=== PATIENT | male | born 1960 | race Caucasian/White ===

== ENCOUNTER 2018-03-30 14:38 | Inpatient (IN) ==
[2018-03-30 15:36] LABS: INR 1.12; PROTIME 15.3 Seconds (11.0-16.0)
[2018-03-30 15:37] LABS: PTT 35.4 Seconds (22.3-41.8)
[2018-03-30 15:39] LABS: BASO# 0.04 X1000 (0.0-0.2); BASO% 0.2 % (0.0-0.8); EOS# 0.26 X1000 (0.0-0.7); EOS% 1.1 % (0.0-10.0); HEMATOCRIT 37.7 % (42.0-52.0); HEMOGLOBIN 12.1 g/dL (14.0-18.0); IMM GRAN# 0.22 X1000 (0.0-0.04); LYMPH# 1.54 X1000 (1.2-3.4); LYMPH% 6.7 % (20.5-51.1); MCH 31.5 PG (27-31); MCHC 32.1 g/dL (33-37); MCV 98.2 FL (81-99); MONO# 1.47 X1000 (0.11-0.59); MONO% 6.3 % (1.7-9.3); MPV 9.5 FL (7.4-10.4); NEUT# 19.62 X1000 (1.4-6.5); NEUT% 84.7 % (42.2-75.2); PLT 780 X1000 (130-400); RBC 3.84 XMIL (4.7-6.1); RDW 12.9 % (11.5-14.5); WBC 23.15 X1000 (4.8-10.8)
[2018-03-30 15:43] LABS: AGAP 14; ALBUMIN 3.3 g/dL (3.5-5.0); ALKALINE PHOSPHATASE 136 U/L (32-122); BUN 11 mg/dL (8-22); CALCIUM 8.7 mg/dL (8.8-10.2); CHLORIDE 100 mmol/L (98-107); CK PROFILE 18 U/L (24-204); COSMO 282; CREATININE 0.6 mg/dL (0.7-1.2); ESTIMATED GFR > 60; GLUCOSE 194 mg/dL (70-104); GOT 49 U/L (10-34); GPT 65 U/L (10-44); POTASSIUM 4.6 mmol/L (3.5-5.1); SODIUM 139 mmol/L (136-145); TCO2 25 mmol/L (25-35); TOTAL BILIRUBIN 0.27 mg/dL (0.20-1.00); TOTAL PROTEIN 6.5 g/dL (6.3-8.3)
[2018-03-30] MEDS ORDERED: TORADOL IM ONE (20:07)
[2018-03-30] MEDS ORDERED: ZOSYN 3.375 GM in NS 50 ML IV ONE (21:05)
--- NOTE | 2018-03-30 21:16 | PROVIDER DOCUMENTATION ---
This chart was entered by Stephani Velásquez Scribe, acting as scribe for Yair Morejon MD. HPI-Respiratory General - General Chief Complaint: Cough Stated Complaint: DR BROWN REF PNEUM/FLUID ON LUNG Time Seen by Provider: 03/30/18 20:25 Source: patient - History of Present Illness-Resp Nature of Presenting Problem: Pt was dx w/ pneumonia about 2 weeks ago, he was put on Leviquin for 5 days and another antibiotic that he cannot remember. Today he was told that the pneumonia isn't getting better, but worse and that he should come to the ED. Quality of Pain: reports: other (Pain w/ deep breathing) Severity in ED: reports: moderate Onset/Duration: reports: other (2 weeks) Timing: reports: still present Exposure: reports: other (prev. dx of pneumonia) Cough Quality/Degree: reports: no cough Episode Frequency: no prior episodes Current Respiratory Medication Therapy: Initiated none Modifying Factors: improves with: nothing Associated Symptoms: reports: chest pain/soreness (W/ deep breathing) Similar Symptoms Previously?: Yes Recently seen or treated by another doctor?: Yes Review of Systems - Adult - REVIEW OF SYSTEMS - ADULT Constitutional: denies: chills, fever Eyes: reports: no symptoms reported Ears, Nose, Mouth & Throat: reports: no symptoms reported Cardiovascular: reports: no symptoms reported Respiratory: reports: no symptoms reported. denies: shortness of breath, wheezing Gastrointestinal: reports: no symptoms reported. denies: abdominal pain, diarrhea, nausea, vomiting Genitourinary: reports: no symptoms reported Musculoskeletal: reports: no symptoms reported Integumentary: reports: no symptoms reported Neurological: reports: no symptoms reported Psychiatric: reports: no symptoms reported Endocrine: reports: no symptoms reported Hematologic/Lymphatic: reports: no symptoms reported Allergic/Immunologic: reports: no symptoms reported All Other Systems: Reviewed and Negative Past History - Adult - PAST MEDICAL HISTORY-ADULT Review of Records: reports: Old Records Reviewed, Nursing Assessment Review, Medications Reviewed, Social history reviewed & non-contributory. - SOCIAL HISTORY Smoking: quit greater than 1 year Substance Use: none/never Alcohol Use Frequency: never Living Situation: family Physical Exam-General - PHYSICAL EXAM-ADULT Initial Vital Signs Reviewed: Yes - CONSTITUTIONAL General Appearance: appears well, alert, no apparent distress - EYES Eyes: PERRL/EOMI, pink conjunctivae - HEAD, EARS, NOSE, MOUTH & THROAT HENMT: normocephalic/atraumatic, moist mucous membranes, normal ENT inspection, TMs normal, pharynx normal - NECK Neck: non-tender, full range of motion, supple, normal inspection - RESPIRATORY Respiratory: chest non-tender, other (marked egophony in L lung, marked decreased breath sounds) - CARDIOVASCULAR Cardiovascular: regular rate, rhythm - LYMPHATIC Lymphatic: no adenopathy - MUSCULOSKELETAL Back Exam: normal inspection, no CVA tenderness, no vertebral tenderness Extremity: normal range of motion, non-tender, normal gait, normal inspection - SKIN Integumentary: normal color, warm/dry - NEUROLOGIC Neurologic: grossly normal - PSYCHIATRIC Psych/Mental Status: normal thought process, oriented x 3 Progress - PLAN OF CARE/RESULTS Progress/Plan/Lab Results: Vital Signs - 8 hr 03/30/18 14:45 03/30/18 20:17 Temperature 97.9 F 98.1 F Pulse Rate 108 H 95 H Respiratory Rate 20 16 Blood Pressure 123/56 125/63 O2 Sat by Pulse Oximetry 97 97 Laboratory Results - last 24 hr 03/30/18 03/30/18 03/30/18 15:06 15:06 15:06 WBC 23.15 H RBC 3.84 L Hgb 12.1 L Hct 37.7 L MCV 98.2 MCH 31.5 H MCHC 32.1 L RDW Std Deviation 12.9 Plt Count 780 H MPV 9.5 Immature Gran % (Auto) 1.0 H Neut % (Auto) 84.7 H Lymph % (Auto) 6.7 L [place] % (Auto) 6.3 Eos % (Auto) 1.1 Baso % (Auto) 0.2 Immature Gran # (Auto) 0.22 H Neut # (Auto) 19.62 H Lymph # (Auto) 1.54 [place] # (Auto) 1.47 H Eos # (Auto) 0.26 Baso # (Auto) 0.04 PT 15.3 INR 1.12 PTT (Actin FS) 35.4 Sodium 139 Potassium 4.6 Chloride 100 Carbon Dioxide 25 Anion Gap 14 BUN 11 Creatinine 0.6 L Estimated GFR/1.73 m2 > 60 BUN/Creatinine Ratio 18 Glucose 194 H Calculated Osmolality 282 Calcium 8.7 L Total Bilirubin 0.27 AST 49 H ALT 65 H Alkaline Phosphatase 136 H Creatine Kinase 18 L Troponin T Total Protein 6.5 Albumin 3.3 L Globulin 3.2 Albumin/Globulin Ratio 1.0 Plasma Lactate 03/30/18 03/30/18 15:06 15:06 WBC RBC Hgb Hct MCV MCH MCHC RDW Std Deviation Plt Count MPV Immature Gran % (Auto) Neut % (Auto) Lymph % (Auto) [place] % (Auto) Eos % (Auto) Baso % (Auto) Immature Gran # (Auto) Neut # (Auto) Lymph # (Auto) [place] # (Auto) Eos # (Auto) Baso # (Auto) PT INR PTT (Actin FS) Sodium Potassium Chloride Carbon Dioxide Anion Gap BUN Creatinine Estimated GFR/1.73 m2 BUN/Creatinine Ratio Glucose Calculated Osmolality Calcium Total Bilirubin AST ALT Alkaline Phosphatase Creatine Kinase Troponin T < 0.010 Total Protein Albumin Globulin Albumin/Globulin Ratio Plasma Lactate 2.2 Orders Category Date Time Status Cardiac Monitoring DIRECTED Care 03/30/18 14:58 Active IV Insertion ORDERED Care 03/30/18 14:58 Active BLOOD CULTURE [BLDCUL] Stat Lab 03/30/18 15:06 Ordered CBC WITH DIFF [HEME] Stat Lab 03/30/18 15:06 Completed CK PROFILE [SP CHEM] Stat Lab 03/30/18 15:06 Completed COMPREHENSIVE METABOLIC PANEL [CHEM] Stat Lab 03/30/18 15:06 Completed LACTATE, PLASMA [CHEM] Lab 03/30/18 18:00 Uncollected LACTATE, PLASMA [CHEM] Lab 03/30/18 21:00 Uncollected LACTATE, PLASMA [CHEM] Q3H Lab 03/30/18 15:06 Completed PROTIME WITH INR [COAG] Stat Lab 03/30/18 15:06 Completed PTT [COAG] Stat Lab 03/30/18 15:06 Completed TROPONIN T Stat Lab 03/30/18 15:06 Completed URINALYSIS W/POSS RFLX CULT [URINALYSIS] Stat Lab 03/30/18 15:06 Ordered Ketorolac [Toradol] Med 03/30/18 20:07 Discontinued 60 mg IM NOW ONE Piperacillin/Tazobactam [Zosyn] 3.375 gm Med 03/30/18 21:05 Active 0.9% Sodium Chloride Inj [Ns] 50 ml IV NOW Oxygen Device Stat Oth 03/30/18 14:58 Active Result Diagrams: 03/30/18 15:06 03/30/18 15:06 - CONSULTS/PCP/HOSPITALIST Notification #1 *Consult/PCP/Hospitalist*: dr Nguyen Time Discussed: 20:30 Consult Disposition: Admit Departure - Departure Date of Disposition Decision: 03/30/18 Time of Disposition Decision: 21:15 DIAGNOSIS: Pleural effusion associated with pulmonary infection Pneumonia Qualifiers: Pneumonia type: due to unspecified organism Laterality: right Lung location: lower lobe of lung Qualified Code(s): J18.1 - Lobar pneumonia, unspecified organism Disposition: ADMITTED INPATIENT 09 Certified Medical Emergency: Emergent Condition: Stable Referrals and Follow-Ups: Chandrika Brown MD [Primary Care Provider] - - Critical Care Note This patient required my direct & personal management of CC.: No Attestation - Physician/ MARILEE Attestation Patient care was provided by Advanced Practice Provider:: No The physician spent face to face time with patient:: Yes Advanced Practice Provider documentation review:: Supervising physician onsite and consulted in the evaluation and care of this patient. The physician did have a face to face encounter with the patient. This chart was documented by the indicated scribe, (Stephani Velásquez, [employer]) and accurately reflects the services I performed and decisions made by me, Yair Morejon MD, as attested by the provider's signature.
[2018-03-30] MEDS ORDERED: MORPHINE IV ONE (21:43)
[2018-03-30] MEDS ORDERED: TYLENOL PO PRN (22:27)
[2018-03-30] MEDS: DUONEB (A & A) INH SCH (23:30)
[2018-03-31] MEDS: NORCO-10 PO PRN ×4 (00:19→18:00)
[2018-03-31 01:05] LABS: URINE SOURCE CLEAN CATCH
[2018-03-31 01:08] LABS: BILIRUBIN URINE NEGATIVE (NEGATIVE); BLOOD URINE NEGATIVE (NEGATIVE); COLOR YELLOW; GLUCOSE URINE NEGATIVE (NEGATIVE); KETONE URINE NEGATIVE (NEGATIVE); LEUKOCYTES URINE NEGATIVE (NEGATIVE); NITRITE URINE NEGATIVE (NEGATIVE); PROTEIN URINE TRACE mg/dL (NEGATIVE); TURBIDITY URINE CLEAR (CLEAR); UROBILINOGEN URINE 2 mg/dL (NORMAL)
[2018-03-31 01:09] LABS: UR EPITHELIAL CELLS <10 /HPF (<10); URINE BACTERIA NEGATIVE /HPF; URINE RBC <10 /HPF (<10); URINE WBC <10 /HPF (<10)
[2018-03-31] MEDS ORDERED: TYLENOL PM PO ONE (01:44)
[2018-03-31] MEDS: DUONEB (A & A) INH SCH ×5 (03:30→19:25)
[2018-03-31] MEDS: ZOSYN 3.375 GM in NS 50 ML IV SCH ×3 (03:40→14:48)
--- NOTE | 2018-03-31 03:52 | HISTORY AND PHYSICAL ---
PRIMARY CARE PHYSICIAN: Dr. Brown. CHIEF COMPLAINT: Shortness of breath for the past 2 weeks. HISTORY OF PRESENTING ILLNESS: A 57-year-old male with a history of Tourette's, chronic low back pain, who had presented to emergency room with 2 weeks history of having worsening shortness of breath and cough. He states that he had taken some antibiotics outpatient, however, he did not have any improvement. The patient was seen in the emergency department. He had a chest x-ray done which did show pneumonia with a right large pleural effusion. Due to his presenting symptoms, he will require admission for further management. At the time of my examination, he denied any headache, nausea, vomiting, diarrhea, hemoptysis, but complained of shortness of breath, chest pain and cough. PAST MEDICAL HISTORY: Tourette's, chronic back pain, arthritis. PAST SURGICAL HISTORY: Appendectomy. ALLERGIES: No known drug allergies. CURRENT MEDICATIONS: Include [place] 10 one q.i.d., Zoloft 100 mg p.o. daily. SOCIAL HISTORY: He is a former smoker. History of alcohol use in the past. Denies any illicit drug use. FAMILY HISTORY: No history of coronary artery disease. REVIEW OF SYSTEMS: Fourteen point review of system as listed in HPI. Other systems negative. PHYSICAL EXAMINATION: GENERAL: Cooperative, friendly male. He is resting more comfortably now. VITAL SIGNS: Temperature 97.9 degrees, pulse 108, respirations 20, blood pressure 123/56. HEENT: Atraumatic, normocephalic. Extraocular movements intact. PERRLA. NECK: No masses. CHEST: Bibasilar rales. CARDIOVASCULAR: Regular rate and rhythm. ABDOMEN: Soft, positive bowel sounds. EXTREMITIES: No edema. NEUROLOGIC: He is awake, alert, oriented x3. GENITOURINARY: No bladder distention. SKIN: Warm. LABORATORIES AND STUDIES: WBC 23.15, hemoglobin 12.1, hematocrit 37.7, platelets 780,000. Sodium 139, potassium 4.6, chloride 100, CO2 25, BUN is 11, creatinine 0.6, glucose is 194. Chest x-ray shows worsening right pleural effusion, bibasilar atelectasis versus pneumonia. ASSESSMENT: This is a 57-year-old male with a history of Tourette's, chronic back pain who had presented to emergency department with a 2-week history of worsening shortness of breath. He was evaluated in the emergency department. He had imaging done which was consistent with pneumonia. Subsequently, he will require admission for further management. 1. Pneumonia with right pleural effusion. 2. Tourette's. 3. Chronic low back pain. PLAN: 1. We will admit patient to medical floor with telemetry. 2. We will check blood cultures. Start patient on IV antibiotics. 3. We will consult Pulmonary for further evaluation closely. 4. Restart patient's home medications. 5. We will give patient adequate pain control. 6. Put patient on DVT prophylaxis with SCD. 7. We will continue to follow, and reassess and make further recommendation based on patient's clinical course. cc: Jan Nguyen MD
[2018-03-31 06:19] LABS: BASO# 0.04 X1000 (0.0-0.2); BASO% 0.2 % (0.0-0.8); EOS# 0.33 X1000 (0.0-0.7); EOS% 1.9 % (0.0-10.0); HEMATOCRIT 35.2 % (42.0-52.0); IMM GRAN# 0.22 X1000 (0.0-0.04); IMM GRAN% 1.3 % (0.0-0.5); LYMPH# 1.35 X1000 (1.2-3.4); LYMPH% 7.8 % (20.5-51.1); MCH 30.6 PG (27-31); MCHC 31.3 g/dL (33-37); MCV 98.1 FL (81-99); MONO# 1.59 X1000 (0.11-0.59); MONO% 9.2 % (1.7-9.3); MPV 9.5 FL (7.4-10.4); NEUT# 13.81 X1000 (1.4-6.5); NEUT% 79.6 % (42.2-75.2); PLT 732 X1000 (130-400); RBC 3.59 XMIL (4.7-6.1); RDW 13.1 % (11.5-14.5); WBC 17.34 X1000 (4.8-10.8)
[2018-03-31 06:43] LABS: AGAP 11; BUN 9 mg/dL (8-22); CALCIUM 8.7 mg/dL (8.8-10.2); CHLORIDE 102 mmol/L (98-107); COSMO 281; CREATININE 0.6 mg/dL (0.7-1.2); ESTIMATED GFR > 60; GLUCOSE 122 mg/dL (70-104); POTASSIUM 3.8 mmol/L (3.5-5.1); SODIUM 141 mmol/L (136-145); TCO2 28 mmol/L (25-35)
--- NOTE | 2018-03-31 07:14 | EKG Report ---
Test Performed on : 03/30/2018 2:55:56 PM Test Reason : CHEST PAIN Blood Pressure : / mmHG Vent. Rate : 098 BPM Atrial Rate : 098 BPM P-R Int : 148 ms QRS Dur : 094 ms QT Int : 340 ms P-R-T Axes : 042 -17 047 degrees QTc Int : 434 ms Normal sinus rhythm. Normal ECG No previous ECGs available Unconfirmed Result
--- NOTE | 2018-03-31 09:32 | Diag Imaging Result Doc PS360 ---
EXAM: CT THORAX W/O CONTRAST INDICATION: SOB TECHNIQUE: This exam was performed using automated exposure control, adjustment of mA or kV according to patient size, and/or use of iterative reconstruction technique. COMPARISON: None. FINDINGS: There is a large right pleural effusion that appears to be partially loculated. There is associated prominent atelectasis at the mid and lower lung zone on the right. There is slightly lower attenuation in part of the collapsed portion of right middle lobe and right lower lobe suggesting superimposed infection. There are patchy airspace infiltrates throughout the aerated portion of the right lung suggesting pneumonia. There are a couple of small infiltrates in the left upper lobe near the apex. There is minimal subsegmental atelectasis at the left lung base. There is no cardiomegaly. There are shotty small mediastinal and hilar lymph nodes that are probably reactive. Limited views of the upper abdomen are grossly unremarkable. IMPRESSION: 1.Large partially loculated right pleural effusion with associated significant atelectasis. 2.Patchy airspace consolidation that is mainly throughout the right lung but also near the left lung apex suggesting pneumonia. Electronically signed by Prieto Lutz 03/31/2018 9:29 AM
[2018-03-31] MEDS: ZOLOFT PO SCH (10:25)
--- NOTE | 2018-03-31 11:34 | Diag Imaging Result Doc PS360 ---
EXAM: CHEST-2 VIEWS HISTORY: POST RIGHT THORACENTESIS TECHNIQUE: Inspiratory and expiratory chest, four views COMPARISON: 03/30/2018 FINDINGS: Ultrasound of the right hemithorax demonstrated only eight tiny fluid collection inferiorly. What appears to be simple fluid on the CT is in fact very thick by ultrasound. A needle was advanced into this small collection without difficulty. No fluid could be withdrawn. No postprocedural pneumothorax. IMPRESSION: No change in appearance of the chest. No postprocedural pneumothorax. Electronically signed by Michael Bernard 03/31/2018 11:32 AM
--- NOTE | 2018-03-31 11:55 | Diag Imaging Result Doc PS360 ---
EXAM: US THORACENTESIS W/IMAGE GUIDE HISTORY: Therapeutic and diagnostic TECHNIQUE: Ultrasound-guided thoracentesis COMPARISON: None. FINDINGS: Prior to the procedure I discussed the risk and benefits with the patient. Primary risks include bleeding, infection, and pneumothorax. Questions were answered. Consent was given. The permit was signed. Ultrasound was used to localize the fluid collection in the right chest. What appears to be simple fluid on the CT is in fact shown to be thick and multiseptated by ultrasound. There are only tiny fluid collections present. This area was cleaned and draped in the normal fashion. Lidocaine was used as a local anesthetic. Needle was advanced and multiple were made to aspirate fluid. No fluid could be aspirated. IMPRESSION: Ultrasound-guided thoracentesis. No fluid could be withdrawn. Electronically signed by Michael Bernard 03/31/2018 11:53 AM
[2018-03-31] MEDS ORDERED: VANCOMYCIN IV PER PHARMACY MISC SCH (13:45)
--- NOTE | 2018-03-31 14:22 | PROGRESS NOTE ---
DATE: 03/31/2018 SUBJECTIVE: The patient reports not being able to sleep properly yesterday. He reports still some right-sided chest pain. Denies any fever or chills. OBJECTIVE: Vital Signs: Temperature 98.7 degrees, heart rate 92, respiratory rate 18, blood pressure 118/60, and O2 saturation 91% on room air. General: On examination, this is a 57-year- old male, lying in bed, in no acute distress. HEENT: Head is normocephalic, atraumatic. Neck: No JVD noted. No carotid bruits. No lymphadenopathy. No thyromegaly. Cardiovascular: S1 and S2 heard. No murmurs, gallops, or rubs. Regular rate and rhythm. Respiratory: Coarse breath sounds and rhonchi are noted in both pulmonary bases , mostly noted in the right base, with some crackles as well. Patient is not using any accessory muscles or having work of breathing. Abdomen: Soft, nontender to palpation. Bowel sounds present. No organomegaly. Extremities: No clubbing, cyanosis, or edema. Peripheral pulses present in both legs. Neurological: Patient is alert and oriented x3. Moves 4 extremities. LABORATORY DATA: White cell count 17.34, hemoglobin 11, hematocrit 35.2, platelets are 732, with normal BMP. ASSESSMENT AND PLAN: 1. Community-acquired pneumonia with possible right empyema. The patient was admitted to the hospital for pneumonia. CT of the chest basically revealed large partially loculated right pleural effusion with associated significant atelectasis. Pulmonary, Dr. Chong has been consulted. His help is appreciated. He ordered a thoracentesis that we tried to do this morning. The report said that on the ultrasound what appears to be simple fluid on the CT is in fact shown to be a thick and multiseptated collection. In that regard I prefer to have a surgical consultation to see if he is a candidate for chest tube placement. Currently, this patient is on Zosyn. I will add vancomycin to his current treatment. Considering that this patient will need antibiotics for a long period of time, I prefer to get Dr. Juan Carlos Murdock on board. 2. Tourette syndrome. We will continue home medications. 3. Chronic low back pain. We will provide home medications. 4. Disposition depending upon the opinions of both subspecialties, Infectious Disease and General Surgery. cc: Suhas Grimaldo MD [facility]
[2018-03-31] MEDS: VANCOMYCIN 2,000 MG in NS 500 ML IV SCH (16:00)
[2018-03-31] MEDS: FLEXERIL PO SCH ×2 (16:10→21:15)
--- NOTE | 2018-03-31 18:42 | INFECTIOUS DISEASE CONSULT REP ---
DATE: 03/31/2018 CONCLUSION: The patient is admitted to the hospital. He has pneumonia and he has some thick fluid in the pleural space and it is strongly suspected that the patient has an empyema as well. The patient also states that his shoulders are very sore since he has been lying in bed. He states that whenever he lies in bed for a period of time, his joints gets very sore in with his shoulders the worst. The patient may have an immunoglobulin deficiency. RECOMMENDATIONS: I agree to treating the patient with vancomycin and Zosyn. It is my understanding that tomorrow a tube is going to be put in the patient's chest to drain what is thought to be an empyema. I have ordered Flexeril for the patient. He requested Flexeril and said that in the past when he has had sore joints, Flexeril has helped him quite a bit. In addition, I am going to get immunoglobulin levels because the patient may have an immunoglobulin deficiency. DISCUSSION: The patient approximately 2 weeks ago started having dyspnea, diaphoresis, chills and cough. He occasionally produced a clear sputum. In the past 2 days, as mentioned above, he has had sore shoulders. LABORATORY STUDIES: Showed the following: The [place]'s [place] [id number]. [place] [address], hemoglobin is 11, platelet count is 732,000. Creatinine is 0.6. GFR is greater than 60. The patient's blood cultures are pending. The patient's CT scan of the chest shows a large partially loculated right pleural effusion with associated significant atelectasis. There is also a patchy airspace consolidation throughout the right lung suggesting pneumonia. PAST MEDICAL HISTORY/REVIEW OF SYSTEMS: Eyes and ears: She does not have any problem hearing or seeing. Neck: No stiffness. Cardiac: No chest pains or palpitations. Gastrointestinal: No nausea, vomiting, or diarrhea. Genitourinary: No dysuria or flank pain. Neurologic: No history of seizures. No recent loss of motor or sensory function. Integument: No rash. Endocrine: The patient is not diabetic and he does not have thyroid problems. PREVIOUS HOSPITALIZATIONS AND OPERATIONS: Patient has had an appendectomy. MEDICAL DISEASES: Negative for diabetes mellitus and hypertension. INFECTIOUS DISEASE HISTORY: Negative for urinary tract infection or cellulitis. FAMILY HISTORY: Positive for hypertension, stroke, and diabetes mellitus. SOCIAL HISTORY[place] . He lives alone. He does not have any pets. 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 He stopped smoking cigarettes years ago. He does drink beer. He does not abuse drugs. HOME MEDICATIONS: Include hydrocodone, Levaquin, meloxicam, and Zoloft. PHYSICAL EXAMINATION: Vital Signs: Temperature is 99.3 degrees, pulse 83, respirations 18, blood pressure 100/52. General: This is a fairly healthy-appearing, middle-aged male. He is in no acute distress except with his shoulders hurting. Head/eyes/ears/nose/throat: He can hear my spoken words and see near objects. Neck: No meningismus. Lungs: There were diminished breath sounds on the right side. The left side was clear. Cardiovascular: Heart rate is regular. Abdomen: Soft and nontender. Extremities: The patient does not have any leg erythema. Neurologic: Patient is awake. He can move his extremities. There is no tremor. His memory as regarding his medical history seemed to be intact. Thank you for the consult. cc: Juan Carlos Murdock MD
--- NOTE | 2018-03-31 19:59 | GENERAL SURGERY CONSULTATION ---
DATE: 03/31/2018 HISTORY OF PRESENT ILLNESS: Mr. Heath is a 57-year-old, admitted yesterday with shortness of breath and cough. He took antibiotics as an outpatient, but did not improve. He has a pleural effusion on the right side on chest x-ray. An attempted tapping of fluid was unsuccessful. PAST MEDICAL HISTORY: He has a past history of chronic back pain and Tourette's syndrome. PAST SURGICAL HISTORY: Previous surgery includes an appendectomy. MEDICATIONS: He takes [place] 10 for pain and Zoloft. ALLERGIES: He has no known drug allergies. SOCIAL HISTORY: He has not smoked in 6 years. He currently works at [employer]. Denies any alcohol or illicit drug use. FAMILY HISTORY: Pertinent for coronary disease. REVIEW OF SYSTEMS: As noted above. PHYSICAL EXAMINATION: Vital Signs: Temperature is 99.3, heart rate 83, respiratory 18, blood pressure 100/52. He has diminished breath sounds in the right base. Heart: Regular rate and rhythm. Abdomen: Soft. Extremities: No peripheral edema. Neurologic: He is awake and alert. DIAGNOSTICS: White count is 17,300, hemoglobin 11, hematocrit 35. Sodium 141, potassium 3.8. ASSESSMENT: Probable loculated right pleural effusion. PLAN: Will be to place a chest tube if possible. I discussed this with him. We will do it in the operating room with sedation. He understands and agrees to proceed. cc: Yair Fitzgerald MD
[2018-03-31] MEDS: AMBIEN PO SCH (21:16)
[2018-04-01] MEDS: ZOSYN 3.375 GM in NS 50 ML IV SCH ×4 (00:33→23:19)
[2018-04-01] MEDS: NORCO-10 PO PRN ×4 (01:19→23:10)
[2018-04-01] MEDS: VANCOMYCIN 2,000 MG in NS 500 ML IV SCH ×2 (02:30→16:00)
--- NOTE | 2018-04-01 04:37 | CONSULTATION ---
DATE OF CONSULTATION: 03/31/2018 REQUESTING PROVIDER: Dr. Jan Nguyen REASON FOR CONSULTATION: Pneumonia and pleural effusions. HISTORY OF PRESENT ILLNESS: This is a 57-year-old male with a history of Tourette's, chronic lower back pain and arthritis. He presented to the ER on 03/30/2018, with worsening shortness of breath and cough for two weeks. He has been seeing his family doctor and they treated him with 2 different kinds of antibiotics for 5 days each. However, he is not improved. CXR in the ER showed pneumonia with a right large pleural effusion. He has been admitted to the medical floor for further evaluation and management. At the time of my examination, the patient is complaining of shortness of breath, pleuritic chest pain and cough. He denied fever or chill, unintentional weight change, nausea, vomiting or palpitation. PAST MEDICAL HISTORY: 1. Tourette's. 2. Chronic back pain. 3. Arthritis. PAST SURGICAL HISTORY: Appendectomy. SOCIAL HISTORY: He is a former smoker. He denies history of alcohol, tobacco or illicit drug use. FAMILY HISTORY: Reviewed and noncontributory. ALLERGIES: No known drug allergies. REVIEW OF SYSTEMS: A 10-point review of systems was conducted and the pertinent is listed within the HPI. Otherwise, noncontributory. PHYSICAL EXAMINATION: Vital Signs: Temperature 98.7, blood pressure 118/60, pulse 92, respiratory rate 82, oxygen saturation 92% on room air. General: Cooperative, friendly male. He is resting comfortably on bed with no acute distress. He has sudden facial twitches at times. HEENT: Atraumatic. Trachea midline. Mucosa pink and moist. Respiratory: Lung expansion equal bilaterally, diminished breathing sounds bibasilarly. Otherwise, clear to auscultation. Cardiovascular: Regular rate and rhythm, without murmur noted. Gastrointestinal: Normoactive bowel sounds in all 4 quadrants. Soft, nontender, nondistended. Extremities: No pedal edema. No clubbing. No cyanosis. Neurologic: Alert, oriented x 3. Speech fluent. Follows commands. IMAGING DATA: Chest CT showed large, partially loculated right pleural effusion with associated significant atelectasis. Patchy airspace consolidation that is mainly throughout the right lung, but also near the left lung apex suggesting pneumonia. LAB DATA: White blood cells 17.34, hemoglobin 11.0, hematocrit 35.2, platelets 732,000. Sodium 141, potassium 3.8, chloride 102, carbon dioxide 28, BUN 9, creatinine 0.6, glucose 122. ASSESSMENT: This is a 57-year-old male with a history of Tourette's, chronic back pain and arthritis. He has been admitted in the medical floor with pneumonia and large partially loculated right pleural effusion. 1. Right lung pneumonia. 2. Large, partially loculated right pleural effusion. PLAN: 1. Continue current antibiotic therapy and bronchodilators. 2. Thoracentesis planned. If not operative, we will consider chest tube placement. 3. Follow with chest x-ray, ABG, CBC and CMP. 4. Follow up of with blood culture and sputum culture. 5. Continue GI and DVT prophylaxis. Thank you for the courtesy of this consult. Dictated by MENDEZ Richmond for Lulú Chong MD cc: MENDEZ Richmond MD [facility]
[2018-04-01] MEDS: DUONEB (A & A) INH SCH ×6 (05:40→23:10)
[2018-04-01] MEDS: FLEXERIL PO SCH ×4 (06:25→21:43)
[2018-04-01 06:37] LABS: BASO# 0.04 X1000 (0.0-0.2); BASO% 0.2 % (0.0-0.8); EOS# 0.21 X1000 (0.0-0.7); EOS% 1.1 % (0.0-10.0); HEMATOCRIT 37.9 % (42.0-52.0); HEMOGLOBIN 11.8 g/dL (14.0-18.0); IMM GRAN# 0.21 X1000 (0.0-0.04); IMM GRAN% 1.1 % (0.0-0.5); LYMPH# 1.49 X1000 (1.2-3.4); MCH 30.7 PG (27-31); MCHC 31.1 g/dL (33-37); MCV 98.7 FL (81-99); MONO# 2.02 X1000 (0.11-0.59); MONO% 10.9 % (1.7-9.3); MPV 9.5 FL (7.4-10.4); NEUT# 14.63 X1000 (1.4-6.5); NEUT% 78.7 % (42.2-75.2); PLT 881 X1000 (130-400); RBC 3.84 XMIL (4.7-6.1); RDW 13.3 % (11.5-14.5)
[2018-04-01 06:47] LABS: AGAP 12; BUN 7 mg/dL (8-22); CALCIUM 8.7 mg/dL (8.8-10.2); CHLORIDE 102 mmol/L (98-107); COSMO 279; CREATININE 0.6 mg/dL (0.7-1.2); ESTIMATED GFR > 60; GLUCOSE 120 mg/dL (70-104); POTASSIUM 4.1 mmol/L (3.5-5.1); SODIUM 140 mmol/L (136-145); TCO2 26 mmol/L (25-35)
[2018-04-01 07:21] LABS: EOS 2 % (1-10); LYMPHS 12 % (21-51); MONO 2 % (1-9); SEGS 84 % (42-75)
[2018-04-01] MEDS ORDERED: DIPRIVAN 1% ONE (07:37)
[2018-04-01] MEDS ORDERED: FENTANYL ONE (07:45)
[2018-04-01] MEDS ORDERED: KETAMINE ONE (07:46)
[2018-04-01] MEDS ORDERED: SENSORCAINE-MPF 0.5%/EPI 1:200,000 ONE (07:48)
[2018-04-01] MEDS ORDERED: QUELICIN (DOSE) ONE (07:50)
[2018-04-01] MEDS ORDERED: DEMEROL ONE ×2 (08:49→09:03)
[2018-04-01] MEDS ORDERED: NORCO-10 ONE (08:49)
[2018-04-01] MEDS ORDERED: NS 500 ML ONE (08:50)
--- NOTE | 2018-04-01 09:19 | Diag Imaging Result Doc PS360 ---
EXAM: CHEST-PORTABLE HISTORY: insertion of chest tube Right side TECHNIQUE: Portable chest single view COMPARISON: 03/31/2018 FINDINGS: A right-sided chest tube has been placed since the prior exam. There continues to be partial opacification of the mid and lower right hemithorax. No pneumothorax. Bilateral infiltrates or pulmonary edema remain. IMPRESSION: Placement of a right-sided chest tube, but otherwise no interval change. Electronically signed by Michael Bernard 04/01/2018 9:17 AM
[2018-04-01] MEDS: DILAUDID IV PRN ×5 (10:03→21:51)
[2018-04-01] MEDS: ZOLOFT PO SCH (10:09)
--- NOTE | 2018-04-01 12:32 | OPERATIVE NOTE ---
PROCEDURE DATE: 04/01/2018 PROCEDURE: Placement of right chest tube. SURGEON: Yair Fitzgerald MD TIPPLE REPAIRER: Heena. PREOPERATIVE DIAGNOSIS: Right loculated pleural effusion. POSTOPERATIVE DIAGNOSIS: Right loculated pleural effusion. DESCRIPTION OF PROCEDURE: Satisfactory monitoring anesthesia care was established, IV sedation was accomplished. The right anterolateral chest was prepped and draped in a sterile fashion. We anesthetized the skin in an oblique manner using 0.5 Marcaine with epinephrine. We also anesthetized the tissue in the subcutaneous all the way to the pleura. We incised the skin, and used a Barr curved scissors to dissect through the subcutaneous tissue. We then went just to the top of the rib and into the pleural space. We did get fluid back upon entering the pleural space. I then digitally entered the pleural space. There was grumous material palpated. We were able to introduce a 32 chest tube with a trocar into the pleural space, and advanced it to the extent that it would go. He tolerated the procedure satisfactorily. It did not cause him significant amount of discomfort. We then secured the chest tube with 0 silk. We attached the chest tube to a Pleur- evac. A sterile dressing was applied. He tolerated it well, and was sent to the recovery room in satisfactory condition. cc: Yair Fitzgerald MD
--- NOTE | 2018-04-01 14:29 | PROGRESS NOTE ---
DATE: 04/01/2018 SUBJECTIVE: Patient reports feeling fine, no important pain around the insertion of the chest tube, denies any fever, chills. OBJECTIVE: Vitals: Temperature 97.3 degrees, heart rate 91, respiratory rate 20, blood pressure 132/79, O2 saturation 95% room air. General: This is a 57-year-old male lying in bed in no acute distress. HEENT: Head is normocephalic, atraumatic. Neck: No JVD noted. No carotid bruits. No lymphadenopathy. No thyromegaly. Cardiovascular: S1, S2 heard. No murmurs, gallops, or rubs, regular rate and rhythm. Respiratory: Breath sounds and rhonchi noted in both pulmonary bases mostly noted in the right base. There is a right chest tube noted. The patient is not using any accessory muscles or having work of breathing. Abdomen: Soft, nontender to palpation. Bowel sounds present. No organomegaly. Extremities: No clubbing, cyanosis or edema. Peripheral pulses present in both legs. Neurologic: Patient is alert, oriented x3, moves 4 extremities. LABORATORY DATA: White cell count 18.6, hemoglobin 11.8, hematocrit 37.9, platelets 881,000 with normal BMP. ASSESSMENT AND PLAN: 1. Community-acquired pneumonia. 2. Right empyema status post chest tube placement. 3. Tourette syndrome. 4. Chronic low back pain. PLAN: 1. Patient was admitted to the hospital for pneumonia. We have seen in the CT large right pleural effusion and we fail to remove those fluids with thoracentesis so we decided to consult Dr. Fitzgerald from General Surgery and he placed a right chest tube in the right loculated pleural effusion, patient has tolerated procedure very well. At this time we are going to continue with the same antibiotic management in this case vancomycin and Zosyn. Dr. Murdock from Infectious Disease is also on board and agree with the antibiotic therapy. He is going to check hemoglobin deficiency. In any case will continue with the same management. 2. For Tourette syndrome and chronic back pain will continue home medications and generally speaking this patient will be definitely few more days in the hospital. Probably what may need to do is in probably few more days check with another CAT scan if chest tube is draining that empyema or not, will continue to monitor this patient closely. cc: Suhas Grimaldo MD
[2018-04-01] MEDS: AMBIEN PO SCH (21:42)
[2018-04-01] MEDS: PERIDEX MT SCH (21:44)
[2018-04-01] MEDS: ZOFRAN IV PRN (21:51)
[2018-04-02] MEDS: ZOSYN 3.375 GM in NS 50 ML IV SCH ×3 (00:19→19:20)
[2018-04-02] MEDS: DILAUDID IV PRN ×8 (01:06→23:00)
[2018-04-02] MEDS: ZOFRAN IV PRN ×3 (01:21→19:42)
[2018-04-02] MEDS: DUONEB (A & A) INH SCH ×6 (03:10→23:10)
[2018-04-02 04:59] LABS: BASO# 0.04 X1000 (0.0-0.2); BASO% 0.2 % (0.0-0.8); EOS# 0.38 X1000 (0.0-0.7); EOS% 2.4 % (0.0-10.0); HEMATOCRIT 36.2 % (42.0-52.0); HEMOGLOBIN 11.2 g/dL (14.0-18.0); IMM GRAN# 0.16 X1000 (0.0-0.04); LYMPH# 1.43 X1000 (1.2-3.4); LYMPH% 8.9 % (20.5-51.1); MCH 30.9 PG (27-31); MCHC 30.9 g/dL (33-37); MONO# 1.76 X1000 (0.11-0.59); MONO% 10.9 % (1.7-9.3); MPV 9.1 FL (7.4-10.4); NEUT# 12.34 X1000 (1.4-6.5); NEUT% 76.6 % (42.2-75.2); PLT 811 X1000 (130-400); RBC 3.62 XMIL (4.7-6.1); RDW 13.5 % (11.5-14.5); WBC 16.11 X1000 (4.8-10.8)
[2018-04-02] MEDS: FLEXERIL PO SCH ×3 (05:00→21:19)
[2018-04-02] MEDS: NORCO-10 PO PRN ×4 (05:01→23:42)
[2018-04-02 05:26] LABS: AGAP 12; BUN 8 mg/dL (8-22); CALCIUM 8.8 mg/dL (8.8-10.2); CHLORIDE 98 mmol/L (98-107); COSMO 270; CREATININE 0.8 mg/dL (0.7-1.2); ESTIMATED GFR > 60; GLUCOSE 126 mg/dL (70-104); POTASSIUM 4.2 mmol/L (3.5-5.1); SODIUM 135 mmol/L (136-145); TCO2 25 mmol/L (25-35)
[2018-04-02] MEDS: VANCOMYCIN 2,000 MG in NS 500 ML IV SCH ×2 (06:39→19:43)
--- NOTE | 2018-04-02 07:30 | GENERAL SURGERY PROGRESS NOTE ---
DATE: 04/02/2018 Day 1 after placement of a right chest tube. He had a reasonably okay night. He is afebrile. Hemodynamics are okay. His respiratory rate is 18. He drained 179 mL out his chest tube. His chest x-ray really has not changed significantly. His white count has come down a little bit to 16,000. We will continue with chest tube drainage and repeat his chest x-ray on the . He may end up requiring a thoracoscopy versus thoracotomy and decortication. cc: Yair Fitzgerald MD
--- NOTE | 2018-04-02 08:44 | Diag Imaging Result Doc PS360 ---
EXAM: CHEST-PORTABLE - 04/02/2018 HISTORY: pleural effusion TECHNIQUE: Portable chest COMPARISON: 04/01/2018 FINDINGS: Right chest tube remains in place. The right hemithorax remains partially opacified, possibly by loculated pleural fluid, similar to prior. There is some prominence of vascular markings similar to prior. There is no pneumothorax identified. Heart size appears the upper range of normal. IMPRESSION: No significant change from prior. Electronically signed by Johnny Lazaro 04/02/2018 8:42 AM
[2018-04-02] MEDS: ZOLOFT PO SCH (09:46)
[2018-04-02] MEDS: PERIDEX MT SCH ×2 (09:46→21:18)
[2018-04-02 11:22] LABS: AMYLASE BODY FLUID 64 U/L; TOTAL PROT BODY FLUID 5.3 g/dL
[2018-04-02 11:32] LABS: GLUCOSE BODY FLUID < 2 mg/dL; LDH BODY FLUID > 2500 U/L
[2018-04-02 11:55] LABS: BODY FLUID SOURCE PLEURAL FLUID; SPECIMEN PLEURAL FLUID; WBC BF 15018 /cumm
[2018-04-02 12:00] LABS: MONOS 7 %; POLYS 93 %
--- NOTE | 2018-04-02 12:20 | PROGRESS NOTE ---
DATE: 04/02/2018 SUBJECTIVE: The patient reports feeling fine. Some pain around the chest tube insertion area. No fever or chills reported. OBJECTIVE: Vital Signs: Temperature 97.5, heart rate 92, respiratory rate 18, blood pressure 136/76, O2 saturation 95% on nasal cannula at 3 L per minute. General Examination: This is a chronically ill appearing, 57-year-old, male, lying in bed, in no acute distress. HEENT: Head is normocephalic and atraumatic. Neck: No JVD noted. No carotid bruits. No lymphadenopathy. No thyromegaly. Cardiovascular Examination: S1 and S2 heard. No murmurs, gallops, or rubs. Regular rate and rhythm. Respiratory Examination: Breath sounds and rhonchi noted in both pulmonary bases but definitely decreased in the right base. There is a right chest tube noted with some serosanguineous drainage coming out. The patient is not using any accessory muscles or having work of breathing. Abdomen: Soft, nontender to palpation. Bowel sounds present. No organomegaly. Extremities: No clubbing, cyanosis, or edema. Peripheral pulses present in both legs. Neurological Examination: The patient is alert and oriented x3. Moves 4 extremities. Laboratory Data: White cell count 16.1, hemoglobin 11.2, hematocrit 36.2, platelets 811,000. BMP remarkable for sodium of 135. ASSESSMENT: 1. Community-acquired pneumonia. 2. Right empyema, status post chest tube placement. 3. Tourette syndrome. 4. Chronic low back pain. PLAN: The patient has had a chest tube placement on the right side as per Dr. Yair Fitzgerald. So far, yesterday has drained almost 200 mL of secretions that looks like serosanguineous. Surgery reports that this patient may end up requiring a thoracoscopy versus thoracotomy and decortication. In any case, we will follow his recommendations. We will continue with vancomycin and Zosyn. Dr. Murdcok from infectious disease is also following this patient and agreed with the antibiotic therapy. For the rest of medical conditions, in this case, Tourette red syndrome and chronic low back pain, we will continue home medications. cc: Suhas Grimaldo MD
[2018-04-02] MEDS: AMBIEN PO SCH (21:18)
[2018-04-03] MEDS: ZOSYN 3.375 GM in NS 50 ML IV SCH ×4 (00:18→17:31)
[2018-04-03] MEDS: DILAUDID IV PRN ×7 (03:02→21:24)
[2018-04-03] MEDS: DUONEB (A & A) INH SCH ×6 (03:05→23:10)
[2018-04-03] MEDS: NORCO-10 PO PRN ×3 (05:25→16:57)
[2018-04-03] MEDS: FLEXERIL PO SCH ×3 (05:26→21:24)
[2018-04-03] MEDS: VANCOMYCIN 2,000 MG in NS 500 ML IV SCH ×2 (06:20→18:27)
[2018-04-03 06:26] LABS: BASO# 0.03 X1000 (0.0-0.2); BASO% 0.2 % (0.0-0.8); EOS# 0.48 X1000 (0.0-0.7); EOS% 3.3 % (0.0-10.0); HEMATOCRIT 37.3 % (42.0-52.0); HEMOGLOBIN 11.3 g/dL (14.0-18.0); IMM GRAN# 0.09 X1000 (0.0-0.04); IMM GRAN% 0.6 % (0.0-0.5); LYMPH# 1.24 X1000 (1.2-3.4); LYMPH% 8.6 % (20.5-51.1); MCH 30.6 PG (27-31); MCHC 30.3 g/dL (33-37); MCV 101.1 FL (81-99); MONO# 1.44 X1000 (0.11-0.59); MPV 9.3 FL (7.4-10.4); NEUT# 11.07 X1000 (1.4-6.5); NEUT% 77.3 % (42.2-75.2); PLT 774 X1000 (130-400); RBC 3.69 XMIL (4.7-6.1); RDW 13.3 % (11.5-14.5); WBC 14.35 X1000 (4.8-10.8)
[2018-04-03 06:43] LABS: AGAP 9; BUN 6 mg/dL (8-22); CHLORIDE 100 mmol/L (98-107); COSMO 275; CREATININE 0.9 mg/dL (0.7-1.2); ESTIMATED GFR > 60; GLUCOSE 121 mg/dL (70-104); SODIUM 138 mmol/L (136-145); TCO2 29 mmol/L (25-35)
--- NOTE | 2018-04-03 07:21 | Diag Imaging Result Doc PS360 ---
EXAM: CHEST-PORTABLE INDICATION: right pleural effusion TECHNIQUE: One view COMPARISON: 04/02/2018 FINDINGS: Right chest tube is in stable position. The loculated right pleural effusions again identified. It may be slightly smaller than the previous study. There is at least better aeration at the right lung base. Pulmonary venous congestion is again noted and is essentially stable. No new consolidation is identified. Cardiac silhouette is stable. IMPRESSION: Possible slight decrease in the loculated right pleural effusion with better aeration of the right lung base. Electronically signed by Prieto Lutz 04/03/2018 7:19 AM
--- NOTE | 2018-04-03 08:20 | Diag Imaging Result Doc PS360 ---
CT THORAX W/O CONTRAST - 04/03/2018 INDICATION: SOB COMPARISON: 03/31/2018 FINDINGS: There has been placement of a right basilar chest tube in good position. There has been slight decrease in the right pleural effusion, there is still significant effusion particularly at the lateral lung. There is now a small amount of air in the pleural space as well. There is some subcutaneous gas. Upper abdominal images remain unremarkable. Stable rather significant collapse of the lung at the right lung base. No new infiltrates. Aside from some linear atelectasis in the left lung appears clear. Bones are intact. IMPRESSION: Placement of a right basilar chest tube in good position. There has been decrease in the right pleural effusion but there is still significant residual effusion. This exam was performed using automated exposure control, adjustment of mA or kV according to patient size, and/or use of iterative reconstruction technique Electronically signed by Krish Leija 04/03/2018 8:18 AM
[2018-04-03] MEDS: PERIDEX MT SCH ×2 (09:15→21:25)
[2018-04-03] MEDS: ZOLOFT PO SCH (09:15)
--- NOTE | 2018-04-03 11:30 | GENERAL SURGERY PROGRESS NOTE ---
DATE: 04/03/2018 Mr. Heath says he is feeling better. He is breathing better. He is afebrile. Hemodynamics are good. His white count is down to 14,000. His repeat CT scan shows a little bit of improvement. I think we should try some thrombolytic inside his pleural space to see if we can break up some of the adhesions in hopes that we can avoid decortication. I have discussed this with him and he agrees. I have talked with the pharmacy who will send up the thrombolytic which we will infuse daily for 3 days. cc: Yair Fitzgerald MD
[2018-04-03] MEDS ORDERED: CATHFLO IV SCH (12:00)
[2018-04-03] MEDS ORDERED: NS IV SCH (12:00)
--- NOTE | 2018-04-03 12:02 | PROGRESS NOTE ---
DATE: 04/03/2018 SUBJECTIVE: The patient reports breathing better. Denies any chest pain today. No fever or chills. OBJECTIVE: Vital Signs: Temperature 98.1, heart rate 80, respiratory rate 18, blood pressure 117/67, O2 saturation 93% on 3 L nasal cannula. General: This is a 57-year-old, male, lying in bed in no acute distress. HEENT: Head is normocephalic, atraumatic. Neck: No JVD noted. No carotid bruits. No lymphadenopathy. No thyromegaly. Cardiovascular: S1, S2 heard. No murmurs, gallops, or rubs. Regular rate and rhythm. Respiratory: Breath sounds and rhonchi noted in both pulmonary bases, but definitely decreased in the right. There is a right chest tube noted with some serosanguineous drainage coming out. The patient is not using any accessory muscles or having work of breathing. Abdomen: Soft, nontender to palpation, nondistended. Bowel sounds present. No organomegaly. Extremities: No clubbing, cyanosis, or edema. Peripheral pulses present in both legs. Neurologic: The patient is alert and oriented x3. Moves 4 extremities. LABORATORY DATA: White cell count 14.35, hemoglobin 11.3, hematocrit 33.3, platelets 774,000. Normal BMP. ASSESSMENT: 1. Community-acquired pneumonia. 2. Right empyema, status post chest tube placement. 3. Tourette's syndrome. 4. Chronic back pain. PLAN: The patient clinically is doing fine, not complaining of major chest pain. No fever, and white cell count continues to improve. Dr. Fitzgerald from General Surgery is following this patient. There is a CT that has been ordered yesterday, which basically showed a decrease in the right pleural effusion, but there is still significant residual effusion as well. At this point, there is a plan to do thrombolysis with alteplase for the next 3 days to see if that can help the patient to break up some of the adhesions, so decortication can be avoided. Will see how this patient does. Will do an x-ray after those 3 days, and will go from there. For Tourette's syndrome and chronic low back pain, will continue with home medications. cc: Suhas Grimaldo MD
--- NOTE | 2018-04-03 14:16 | INFECTIOUS DISEASE PROGRESS NO ---
DATE: 04/03/2018 PRESENT ILLNESS: The patient has a right-sided pneumonia with a pleural effusion. It is strongly suspected that this actually may be an empyema. The patient also states his shoulders are sore and requested that he have more Flexeril. The patient was tested for an immunoglobulin deficiency and his immunoglobulin levels are normal. MEDICATIONS: The patient is on a combination of vancomycin and Zosyn. The dose of Flexeril has been increased at the patient's request. PHYSICAL EXAMINATION: Vital Signs: Temperature is 98 degrees, pulse 80, respirations 16, blood pressure 120/60. General: This is a fairly healthy-appearing, middle-aged male. He is in no acute distress, although he does have pain in his chest from the chest tube being present. Head, eyes, ears, nose, and throat: He can hear my spoken words and see near objects. He does not have any white coating of his tongue. Neck: No meningismus. Thorax: The patient has a chest tube in place on the right side. Lungs: There were diminished breath sounds on the right side. I did not hear any rales or rhonchi on either side. Abdomen: Soft and nontender. Cardiovascular: Heart rate is regular. Neurologic: The patient is awake. He can move his extremities. There is no tremor. LAB AND X-RAY: CT scan of the chest shows that there is a decreased amount of pleural fluid in the right chest, although there still is a significant amount. Pleural fluid white blood cell count was 15,018, 93% were polymorphonuclear. Gram stain of the pleural fluid showed gram- positive cocci but culture from the pleural fluid and from the blood are both negative at this time. Patient's CBC shows a white count of 14,350, hemoglobin 11.3, and platelet count of 774,000. The patient's creatinine is 0.9. GFR is greater than 60. ASSESSMENT AND PLAN: Patient has pneumonia and possibly an empyema. For now I think it would be reasonable to continue both vancomycin and Zosyn. COMORBIDITIES: He at one time did smoke cigarettes but has not done so in years. He does drink beer. He does not abuse drugs. cc: Juan Carlos Murdock MD
[2018-04-03] MEDS ORDERED: KETAMINE ONE (14:53)
[2018-04-03] MEDS: AMBIEN PO SCH (21:24)
[2018-04-04] MEDS: ZOSYN 3.375 GM in NS 50 ML IV SCH ×3 (00:53→11:25)
[2018-04-04] MEDS: DILAUDID IV PRN ×9 (00:54→23:56)
[2018-04-04] MEDS: NORCO-10 PO PRN ×3 (01:41→16:48)
[2018-04-04] MEDS: DUONEB (A & A) INH SCH ×6 (03:25→23:17)
[2018-04-04] MEDS: FLEXERIL PO SCH ×3 (05:00→20:17)
[2018-04-04] MEDS: VANCOMYCIN 2,000 MG in NS 500 ML IV SCH ×2 (06:00→18:44)
[2018-04-04 06:30] LABS: BASO# 0.05 X1000 (0.0-0.2); BASO% 0.4 % (0.0-0.8); EOS# 0.51 X1000 (0.0-0.7); EOS% 3.6 % (0.0-10.0); HEMATOCRIT 36.3 % (42.0-52.0); HEMOGLOBIN 11.2 g/dL (14.0-18.0); IMM GRAN# 0.09 X1000 (0.0-0.04); IMM GRAN% 0.6 % (0.0-0.5); LYMPH# 1.08 X1000 (1.2-3.4); LYMPH% 7.7 % (20.5-51.1); MCH 30.9 PG (27-31); MCHC 30.9 g/dL (33-37); MONO# 1.53 X1000 (0.11-0.59); MONO% 10.9 % (1.7-9.3); MPV 9.5 FL (7.4-10.4); NEUT# 10.81 X1000 (1.4-6.5); NEUT% 76.8 % (42.2-75.2); PLT 786 X1000 (130-400); RBC 3.63 XMIL (4.7-6.1); RDW 13.3 % (11.5-14.5); WBC 14.07 X1000 (4.8-10.8)
[2018-04-04 06:39] LABS: BANDS 2 % (0-1); EOS 2 % (1-10); LYMPHS 6 % (21-51); MONO 2 % (1-9); SEGS 88 % (42-75)
[2018-04-04 06:43] LABS: AGAP 9; BUN 6 mg/dL (8-22); CHLORIDE 101 mmol/L (98-107); COSMO 278; CREATININE 0.9 mg/dL (0.7-1.2); ESTIMATED GFR > 60; GLUCOSE 113 mg/dL (70-104); POTASSIUM 3.9 mmol/L (3.5-5.1); SODIUM 140 mmol/L (136-145); TCO2 30 mmol/L (25-35)
--- NOTE | 2018-04-04 07:50 | GENERAL SURGERY PROGRESS NOTE ---
DATE: 04/04/2018 It is 7:25 in the morning. Mr. Heath says he feels better. He is breathing better. He had 330 mL out of his chest tube, which was more than typical. We will repeat his Alteplase into his pleural space again today to try to break up the adhesions and see if this will continue to improve his pleural effusion. cc: Yair Fitzgerald MD
[2018-04-04] MEDS: PERIDEX MT SCH ×2 (08:08→20:17)
[2018-04-04] MEDS: ZOLOFT PO SCH (08:08)
[2018-04-04] MEDS: CATHFLO IV SCH ×2 (08:30→12:23)
[2018-04-04] MEDS: NS IV SCH ×2 (08:30→12:23)
--- NOTE | 2018-04-04 15:29 | PROGRESS NOTE ---
DATE: 04/04/2018 SUBJECTIVE: The patient complains of back pain and pain at the chest tube insertion site. OBJECTIVE: Vital Signs: Temperature 97.6 degrees, blood pressure 125/94, heart rate 104, respirations 18, O2 saturation 96% on room air. General: This is an elderly male lying in bed in no acute distress. Heart: S1, S2 normal. Tachycardic. Lungs: Diminished breath sounds at the bases. No wheezing. No rales. Abdomen: Positive bowel sounds. Soft, nontender, nondistended. Extremities: No edema, no cyanosis, no calf tenderness. Neurologic: The patient is alert and oriented x3. LABS: White blood cell count 14, hemoglobin 11, hematocrit 36, platelets 786. Sodium 140, potassium 3.9, chloride 101, CO2 30, BUN 6, creatinine 0.9, glucose 113. ASSESSMENT AND PLAN: 1. Pneumonia. Continue antibiotic therapy as given by Dr. Murdock. 2. Right loculated pleural effusion status post chest tube placement. The patient is currently receiving cath flow. Further management as per the general surgeon. 3. Situational depression. Continue on Zoloft. 4. Leukocytosis. Continue with antibiotic therapy. 5. Constipation. Will start the patient on scheduled laxative therapy. 6. Deep vein thrombosis prophylaxis. Continue with sequential compression devices. cc: France Villanueva MD
[2018-04-04] MEDS ORDERED: NS 30 ML IV SCH (16:15)
--- NOTE | 2018-04-04 17:10 | INFECTIOUS DISEASE PROGRESS NO ---
DATE: 04/04/2018 PRESENT ILLNESS: Mr. Heath has a right-sided pneumonia with pleural effusion and is status post placement of a right-sided chest tube. MEDICATIONS: Today is day #4 of vancomycin IV per pharmacy dosing and Zosyn 3.375 grams IV every six hours. PHYSICAL EXAMINATION: Vital Signs: Temperature is 97.6, pulse rate 104, respiratory rate 18, blood pressure 125/94, oxygen saturation is 96% on room air. General: This is an acutely ill appearing middle-aged gentleman. He is sitting up in the bed, currently in mild distress due to pain to the right chest tube. HEENT: Atraumatic, normocephalic. Oral mucous membranes are pink and moist. Conjunctivae are pink. Neck: Supple. Trachea is midline. Respiratory: Lung sounds are diminished bilaterally. There are rales noted throughout the right side. Cardiovascular: Heart rate and rhythm are regular and tachycardic. Sinus tachycardia on the monitor. Pedal and radial pulses are +2 bilaterally. Abdomen: Soft, obese, and nontender. Bowel sounds are active. Neurologic: He is drowsy but arousable. He does state he is having considerable pain to the right chest tube site, but is able to move all extremities in the bed slowly. Integumentary: There is a chest tube to the mid axillary region on the right with serosanguineous drainage noted in the tubing as well as on the dressing and there has been some drainage noted to the pad underneath him. LABORATORY AND X-RAY: Today's white count is 14.07, hemoglobin 11.2, platelet count 786,000. Creatinine is 0.9. Estimated GFR is greater than 60. So far, the pleural fluid culture has shown no growth on the preliminary report. A gram stain did show gram-positive cocci. Blood cultures have shown no growth after 48 hours. No imaging reports today. ASSESSMENT AND PLAN: Mr. Heath has a right-sided pneumonia and has had a chest tube placed for a loculated pleural effusion. He has been receiving vancomycin and Zosyn, the combination of which can eventually lead to acute kidney injury, so we will discontinue Zosyn, and start him on Cefepime 2gm IV every 12 hours, while we await the final culture results on his pleural fluid. These plans have been discussed with and recommended by Dr. Murdock. COMORBIDITIES: History of cigarette smoking, obesity, arthritis, and chronic back pain. Dictated by MENDEZ Santo for Juan Carlos Murdock MD This chart was documented by, MENDEZ Santo and accurately reflects the services performed, treatment plan and medical decisions as attested by the providers signature Juan Carlos Murdock MD. cc: Juan Carlos Murdock MD [facility]
[2018-04-04] MEDS: MAXIPIME 2 GM in NS 100 ML IV SCH (17:43)
[2018-04-04] MEDS: AMBIEN PO SCH (20:17)
[2018-04-04] MEDS: MIRALAX PO SCH (20:17)
[2018-04-04] MEDS: COLACE PO SCH (20:17)
[2018-04-05] MEDS: DILAUDID IV PRN ×7 (03:23→22:03)
[2018-04-05] MEDS: DUONEB (A & A) INH SCH ×6 (03:50→23:20)
[2018-04-05] MEDS: FLEXERIL PO SCH ×3 (05:28→21:54)
[2018-04-05] MEDS: MAXIPIME 2 GM in NS 100 ML IV SCH ×2 (05:28→17:54)
[2018-04-05] MEDS: NORCO-10 PO PRN ×3 (05:28→19:27)
[2018-04-05] MEDS: VANCOMYCIN 2,000 MG in NS 500 ML IV SCH ×2 (06:08→18:27)
--- NOTE | 2018-04-05 07:10 | Diag Imaging Result Doc PS360 ---
EXAM: CHEST-PORTABLE 04/05/2018 HISTORY: pleural effusion TECHNIQUE: AP portable at 0555 COMMENT: The pleural fluid collection which was present on 04/03/2018 on the right has diminished in apparent volume. The inspiration is less optimal. There is probable interstitial pulmonary edema. IMPRESSION: Apparent improvement in right pleural effusion. Electronically signed by Ja Garcia 04/05/2018 7:08 AM
[2018-04-05] MEDS: COLACE PO SCH ×2 (09:35→21:54)
[2018-04-05] MEDS: MIRALAX PO SCH ×2 (09:35→21:56)
[2018-04-05] MEDS: ZOLOFT PO SCH (09:35)
[2018-04-05] MEDS: PERIDEX MT SCH ×2 (09:35→21:54)
[2018-04-05] MEDS: MOBIC PO SCH (09:35)
[2018-04-05] MEDS ORDERED: VALTREX PO SCH (11:30)
--- NOTE | 2018-04-05 14:57 | INFECTIOUS DISEASE PROGRESS NO ---
DATE: 04/05/2018 PRESENT ILLNESS: Mr. Heath has a right-sided pneumonia and has had chest tube placement for a loculated pleural effusion on the right. MEDICATIONS: Today is day 5 of IV vancomycin per Pharmacy dosing and day 1 of cefepime 2 g IV every 12 hours. PHYSICAL EXAMINATION: Vital Signs: Temperature is 98.3 degrees, pulse rate 102 , respiratory rate 14, blood pressure 117/73, O2 saturation is 96% on 3 L nasal cannula. General: This is an acutely ill-appearing middle-aged gentleman. He is sitting up in bed, currently in no acute distress. HEENT: Atraumatic, normocephalic. Oral mucous membranes are pink and moist. Conjunctivae are pink. Neck: Supple. Trachea is midline. Cardiovascular: Heart rate and rhythm are regular and tachycardic. Sinus tachycardia on the monitor. Radial and pedal pulses are +2 bilaterally. 1+ bilateral pretibial edema. Respiratory: Lung sounds are diminished bilaterally with some rales noted to the right middle and upper lobes. Abdomen: Soft, obese, and nontender. Bowel sounds are active. Neurologic: He is drowsy but arousable and oriented. Able to move all extremities in the bed. Integumentary: The chest tube to the mid axillary region on the right has a small amount of serosanguineous drainage in the tubing. DIAGNOSTIC STUDIES: No lab work done today. Chest x-ray shows apparent improvement in the right pleural effusion. His pleural fluid has shown no growth on the final report of the culture. ASSESSMENT AND PLAN: Mr. Heath is being treated for a right-sided pneumonia and loculated pleural effusion. Since there has been no growth on the final cultures, we will go ahead and continue broad-spectrum coverage using vancomycin and cefepime as ordered. These plans have been discussed with and recommended by Dr. Murdock. COMORBIDITIES: For Mr. Heath include cigarette smoking, obesity, arthritis, and chronic back pain. Dictated by MENDEZ Santo for Juan Carlos Murdock MD This chart was documented by, MENDEZ Santo and accurately reflects the services performed, treatment plan and medical decisions as attested by the providers signature Juan Carlos Murdock MD. cc: Juan Carlos Murdock MD [facility]
[2018-04-05] MEDS: CATHFLO IV SCH (17:41)
[2018-04-05] MEDS: NS IV SCH (17:41)
--- NOTE | 2018-04-05 18:07 | PROGRESS NOTE ---
DATE: 04/05/2018 SUBJECTIVE: The patient is resting comfortably in bed. No acute events noted overnight. OBJECTIVE: Vital Signs: Temperature 97.8, blood pressure 125/64, heart rate 96 , respirations 20. O2 sats 96% on 3 L nasal cannula. General: This is a chronically ill- appearing elderly male sitting up in bed in no acute distress. Heart: S1, S2 normal. Regular rate and rhythm. Lungs: Equal air entry bilaterally. Diminished breath sounds at the bases. Abdomen: Positive bowel sounds. Soft, nontender, nondistended. Extremities: No edema, no cyanosis. Neurologic: The patient is alert and oriented. LABS: White blood cell count 14, hemoglobin 11, hematocrit 36, platelets 786, 000. Sodium 140, potassium 3.5, chloride 101, CO2 30, BUN 6, creatinine 0.9, glucose 113. ASSESSMENT AND PLAN: 1. Pneumonia. Continue with antibiotic therapy. 2. Right loculated pleural effusion status post chest tube placement. Management as per the general surgeon. 3. Situational depression. Continue on Zoloft. 4. Leukocytosis. Unchanged. Continue with antibiotic therapy. 5. Constipation. Improved. Continue with scheduled laxative therapy. 6. DVT prophylaxis. Continue on SCDs. cc: France Villanueva MD [facility]ITALElad[facility]
--- NOTE | 2018-04-05 19:02 | GENERAL SURGERY PROGRESS NOTE ---
DATE: 04/05/2018 OBJECTIVE: Mr. Heath is afebrile, hemodynamics are fine. He has drained 330 mL out of his chest tube. PLAN: We will inject alteplase for the final day today and then repeat his CAT scan tomorrow look for progress. I have discussed this with him, and he understands. cc: Yair Fitzgerald MD
[2018-04-05] MEDS: AMBIEN PO SCH (21:54)
[2018-04-06] MEDS: DILAUDID IV PRN ×7 (01:09→20:44)
[2018-04-06] MEDS: NORCO-10 PO PRN ×3 (02:15→18:44)
[2018-04-06] MEDS: DUONEB (A & A) INH SCH ×6 (03:07→23:03)
[2018-04-06] MEDS: FLEXERIL PO SCH ×3 (04:27→20:43)
[2018-04-06] MEDS: MAXIPIME 2 GM in NS 100 ML IV SCH ×2 (05:47→17:30)
[2018-04-06] MEDS: VANCOMYCIN 2,000 MG in NS 500 ML IV SCH (06:24)
[2018-04-06 06:51] LABS: BASO# 0.04 X1000 (0.0-0.2); BASO% 0.2 % (0.0-0.8); EOS# 0.61 X1000 (0.0-0.7); EOS% 3.7 % (0.0-10.0); HEMATOCRIT 36.2 % (42.0-52.0); HEMOGLOBIN 11.3 g/dL (14.0-18.0); IMM GRAN# 0.11 X1000 (0.0-0.04); IMM GRAN% 0.7 % (0.0-0.5); LYMPH# 0.94 X1000 (1.2-3.4); LYMPH% 5.7 % (20.5-51.1); MCH 30.7 PG (27-31); MCHC 31.2 g/dL (33-37); MCV 98.4 FL (81-99); MONO# 1.41 X1000 (0.11-0.59); MONO% 8.6 % (1.7-9.3); MPV 9.7 FL (7.4-10.4); NEUT# 13.32 X1000 (1.4-6.5); NEUT% 81.1 % (42.2-75.2); PLT 734 X1000 (130-400); RBC 3.68 XMIL (4.7-6.1); RDW 13.4 % (11.5-14.5); WBC 16.43 X1000 (4.8-10.8)
[2018-04-06 07:14] LABS: AGAP 7; ALBUMIN 2.9 g/dL (3.5-5.0); ALKALINE PHOSPHATASE 92 U/L (32-122); BUN 8 mg/dL (8-22); CALCIUM 9.4 mg/dL (8.8-10.2); CHLORIDE 102 mmol/L (98-107); COSMO 278; CREATININE 0.9 mg/dL (0.7-1.2); ESTIMATED GFR > 60; GLUCOSE 108 mg/dL (70-104); GOT 15 U/L (10-34); GPT 19 U/L (10-44); POTASSIUM 4.6 mmol/L (3.5-5.1); SODIUM 140 mmol/L (136-145); TCO2 31 mmol/L (25-35); TOTAL BILIRUBIN 0.15 mg/dL (0.20-1.00); TOTAL PROTEIN 5.9 g/dL (6.3-8.3)
[2018-04-06 07:23] LABS: EOS 3 % (1-10); LYMPHS 5 % (21-51); MONO 8 % (1-9); SEGS 84 % (42-75)
[2018-04-06] MEDS: COLACE PO SCH ×2 (09:08→20:43)
[2018-04-06] MEDS: ZOLOFT PO SCH (09:08)
[2018-04-06] MEDS: MOBIC PO SCH (09:08)
[2018-04-06] MEDS: PERIDEX MT SCH ×2 (09:09→20:44)
[2018-04-06] MEDS: MIRALAX PO SCH ×2 (09:10→20:44)
--- NOTE | 2018-04-06 09:13 | Diag Imaging Result Doc PS360 ---
EXAM: CT THORAX W/CONTRAST 04/06/2018 HISTORY: Evaluate right pleural effusion TECHNIQUE: This exam was performed using automated exposure control, adjustment of mA or kV according to patient size, and/or use of iterative reconstruction technique. COMMENT: The current examination is compared with 04/03/2018. There is a chest tube in the posterior lateral inferior right pleural space. The volume of pleural fluid on the right has diminished considerably since the previous study. The appearance of the mediastinum has not changed significantly. The regional skeleton is stable in appearance. The right lower lobe has reexpanded somewhat since the previous examination but there is still considerable atelectasis on the right. There are some patchy platelike and groundglass opacities on the left side which were also present at the time the previous study. IMPRESSION: Improved right pleural effusion and basilar atelectasis status post placement of right chest tube. Electronically signed by Ja Garcia 04/06/2018 9:11 AM
--- NOTE | 2018-04-06 14:18 | GENERAL SURGERY PROGRESS NOTE ---
DATE: 04/06/2018 Mr. Heath is afebrile, respiratory rate is 20. Hemodynamics were fine. His breathing is much better compared to when he was admitted. His CT today showed significant improvement in his pleural effusion. His white count today 16,000. I plan to leave his chest tube for 1 more day, then discontinue it. His drainage has been down over the last 2 days, but I will consider leaving it for 1 more day before removal, but I am pleased with his progress. cc: Yair Fitzgerald MD
--- NOTE | 2018-04-06 17:34 | INFECTIOUS DISEASE PROGRESS NO ---
DATE: 04/06/2018 PRESENT ILLNESS: Mr. Heath has had a chest tube placement for a right-sided pleural effusion, and is being treated for pneumonia. MEDICATIONS: He is on day 6 of IV vancomycin per Pharmacy dosing and day 2 of cefepime 2 g IV every 12 hours. PHYSICAL EXAMINATION: Vital Signs: Temperature is 98.5 degrees, pulse rate 89 , respiratory rate 18, blood pressure 116/68, O2 saturation is 98% on 3 L nasal cannula. General: This is a chronically ill-appearing middle-aged gentleman. He is lying in bed, currently in no acute distress. HEENT: Atraumatic, normocephalic. Oral mucous membranes are pink and moist. Conjunctivae are pink. Neck: Supple. Trachea is midline. Respiratory: Lung sounds are clear in the upper lobes, diminished in the mid and bases. Cardiovascular: Heart rate and rhythm are regular. Normal sinus rhythm on the monitor. Pedal and radial pulses are +2 bilaterally. He has a 1+ pretibial edema bilaterally. Abdomen: Soft, obese and nontender. Bowel sounds are active. Integumentary: There is a right midaxillary chest tube in place. The dressing has been changed and is clean and dry. There is some serosanguineous drainage noted in the tubing. He has some small blisters noted around the dressing, which look like tape hassan. Neurologic : He is awake, alert and oriented. Numerous Tourette's tics noted. DIAGNOSTIC STUDIES: Today, his white count is 16.43, hemoglobin 11.3, platelet count 734,000. Creatinine is 0.9, estimated GFR is greater than 60. Total bilirubin is 0.15, AST 15, ALT 19, alkaline phosphatase 92. Pleural fluid has shown no growth. Blood cultures have shown no growth after [address] of the chest done today shows improved right pleural effusion and bibasilar atelectasis with ground-glass opacities to the left side, which are patchy and platelike. ASSESSMENT AND PLAN: Mr. Heath is being treated for pneumonia and has a chest tube for a loculated right pleural effusion. Dr. Fitzgerald may possibly take out his chest tube tomorrow. We will continue the vancomycin that he is receiving and increase the cefepime to 2 g IV every 8 hours to cover the possibility of Pseudomonas. His white count is up a little higher today, and it has been a few days since he has had any cultures, so we will go ahead and do solo cultures today to rule out any other sites of infection. These plans have been discussed with and recommended by Dr. Murdock. COMORBIDITIES: For Mr. Heath include cigarette smoking, obesity, arthritis and chronic back pain. Dictated by MENDEZ Santo for Juan Carlos Murdock MD This chart was documented by, MENDEZ Santo and accurately reflects the services performed, treatment plan and medical decisions as attested by the providers signature Juan Carlos Murdock MD. cc: Juan Carlos Murdock MD [facility]
[2018-04-06 17:43] LABS: URINE SOURCE CLEAN CATCH
[2018-04-06 17:49] LABS: BILIRUBIN URINE NEGATIVE (NEGATIVE); BLOOD URINE NEGATIVE (NEGATIVE); COLOR STRAW; GLUCOSE URINE NEGATIVE (NEGATIVE); KETONE URINE NEGATIVE (NEGATIVE); LEUKOCYTES URINE NEGATIVE (NEGATIVE); NITRITE URINE NEGATIVE (NEGATIVE); PH URINE 6.5; PROTEIN URINE NEGATIVE (NEGATIVE); TURBIDITY URINE CLEAR (CLEAR); UROBILINOGEN URINE NORMAL (NORMAL)
[2018-04-06 17:50] LABS: UR EPITHELIAL CELLS <10 /HPF (<10); URINE BACTERIA NEGATIVE /HPF; URINE RBC <10 /HPF (<10); URINE WBC <10 /HPF (<10)
--- NOTE | 2018-04-06 19:53 | PROGRESS NOTE ---
DATE: 04/06/2018 SUBJECTIVE: The patient is resting comfortably in bed. He complains of chest wall pain. OBJECTIVE: Vital Signs: Temperature 98.5 degrees, blood pressure 116/68, heart rate 81, respirations 18, O2 saturation 98% on 3 L nasal cannula. General: This is an elderly male lying in bed, in no acute distress. Heart: S1, S2 normal. Regular rate and rhythm. Lungs: Equal air entry bilaterally. Abdomen: Positive bowel sounds. Soft, nontender, nondistended. Extremities: No edema, no cyanosis. Neurologic: The patient is alert and oriented x3. LABORATORIES: White blood cell count 16, hemoglobin 11, hematocrit 36, platelets 734,000. Sodium 140, potassium 4.6, chloride 102, CO2 of 31, BUN 8, creatinine 0.9 glucose 108. ASSESSMENT AND PLAN: 1. Pneumonia. Continue with antibiotic therapy. 2. Right loculated pleural effusion, status post chest tube placement. Improved. 3. Situational depression. Continue with Zoloft. 4. Leukocytosis. The white count is slightly elevated today. Continue with antibiotic therapy. 5. Deep vein thrombosis prophylaxis. Continue with SCDs. cc: France Villanueva MD
[2018-04-06] MEDS: AMBIEN PO SCH (20:43)
[2018-04-07] MEDS: MAXIPIME 2 GM in NS 100 ML IV SCH ×3 (00:42→17:42)
[2018-04-07] MEDS: DILAUDID IV PRN ×8 (00:58→23:24)
[2018-04-07] MEDS: VANCOMYCIN 2,000 MG in NS 500 ML IV SCH ×2 (01:41→18:31)
[2018-04-07] MEDS: NORCO-10 PO PRN ×3 (01:45→18:01)
[2018-04-07] MEDS: DUONEB (A & A) INH SCH ×6 (03:22→23:10)
[2018-04-07] MEDS: FLEXERIL PO SCH ×3 (05:19→20:07)
--- NOTE | 2018-04-07 07:18 | Diag Imaging Result Doc PS360 ---
EXAM: CHEST-PORTABLE 04/07/2018 HISTORY: pleural effusion TECHNIQUE: AP portable at 0553 COMMENT: There is pleural thickening and/or loculated effusion on the right. There is a right chest tube. The right lung is slightly better expanded than on the previous study of 04/05/2018. There is also less apparent atelectatic opacity in the left base. There may be interstitial pulmonary edema. IMPRESSION: Improved atelectasis. Pulmonary edema. Electronically signed by Ja Garcia 04/07/2018 7:15 AM
[2018-04-07] MEDS: ZOLOFT PO SCH (09:14)
[2018-04-07] MEDS: COLACE PO SCH ×2 (09:14→20:07)
[2018-04-07] MEDS: PERIDEX MT SCH ×2 (09:15→20:07)
[2018-04-07] MEDS: MOBIC PO SCH (09:15)
[2018-04-07] MEDS: MIRALAX PO SCH ×2 (09:15→20:09)
--- NOTE | 2018-04-07 13:48 | INFECTIOUS DISEASE PROGRESS NO ---
DATE: 04/07/2018 PRESENT ILLNESS: Mr. Heath has had a right chest tube placement for a loculated pleural effusion, and is being treated for pneumonia. MEDICATIONS: Today is day 7 of IV vancomycin per pharmacy dosing and day 3 of cefepime 2 g IV which has been increased to every 8 hours. PHYSICAL EXAMINATION: Vital Signs: Temperature is 97.9 degrees, pulse rate 79 , respiratory rate 14, blood pressure 124/77, O2 saturation is 96% on 3 L nasal cannula. General: This is a chronically ill-appearing, middle-aged gentleman. He is sitting up in the bed, currently in no acute distress. HEENT: Atraumatic, normocephalic. Oral mucous membranes are pink and moist. Conjunctivae are pink. Neck: Supple. Trachea is midline. Cardiovascular: Heart rate and rhythm are regular. Normal sinus rhythm on the monitor. Pedal and radial pulses are +2 bilaterally. There is a 1+ pretibial edema bilaterally. Respiratory: Lung sounds are clear in the upper lobes, diminished in the mid and bases with mild rales in the bases. Integumentary: Skin is warm and dry with right mid axillary chest tube dressing which is clean and dry. There is serosanguineous drainage noted in the tubing, and the [employer] container has been changed. Neurologic: He is awake, alert, oriented, and able to move all extremities without difficulty in the bed. LABORATORY AND X-RAY: None available today. Urinalysis done yesterday afternoon shows no bacteria and less than 10 WBCs. There is a repeat pleural fluid culture which is pending, as well as blood cultures which are preliminary and a urine culture which is pending. Chest x-ray done today shows pulmonary edema with improved atelectasis. ASSESSMENT AND PLAN: Mr. Heath is being treated for pneumonia and has a right -sided chest tube for a loculated pleural effusion. So far, nothing has grown out. However, he does have a leukocytosis. We have done solo cultures and are awaiting those results. The patient states he is feeling better today with less pain in his lungs when he breathes deep. For now , we will continue the high-dose cefepime along with IV vancomycin per pharmacy dosing and draw some more blood work for Tuesday morning. These plans have been discussed with and recommended by Dr. Murdock. COMORBIDITIES: Comorbidities for Mr. Heath include cigarette smoking, obesity , arthritis and chronic back pain. Dictated by MENDEZ Santo for Juan Carlos Murdock MD This chart was documented by, MENDEZ Santo and accurately reflects the services performed, treatment plan and medical decisions as attested by the providers signature Juan Carlos Murdock MD. cc: Juan Carlos Murdock MD [facility]
--- NOTE | 2018-04-07 13:56 | GENERAL SURGERY PROGRESS NOTE ---
DATE: 04/07/2018 Mr. Heath continues to feel better, he is afebrile, he feels like he is breathing better. His chest x-ray looks a little bit better even though there is a slight pulmonary edema today. His chest tube output is serous. I will plan to remove his chest tube today. Hopefully, his white count will continue to improve and he will hopefully be able to be discharged home within the next few days. [facility] will cover in my absence. We will see how his functional status goes, and I will follow him up in my office. cc: Yair Fitzgerald MD
--- NOTE | 2018-04-07 17:22 | PROGRESS NOTE ---
DATE: 04/07/2018 SUBJECTIVE: The patient is resting comfortably in bed, he states that he feels a lot better today. His pain is slowly improving. OBJECTIVE: Vital Signs: Temperature 98 degrees, blood pressure 106/69, heart rate 94, respirations 16, O2 saturation 97% on room air. General: This is an elderly male lying in bed in no acute distress. Heart: S1, S2 normal. Regular rate and rhythm. Lungs: Equal air entry bilaterally. No crackles, no rales. Abdomen: Positive bowel sounds. Soft, nontender, nondistended. Extremities: No edema, no cyanosis. Neuro: The patient is alert and oriented x3. LABS: White blood cell count 16, hemoglobin 11, hematocrit 36, platelets 734,000, sodium 140, BUN 8, creatinine 0.9, potassium 4.6. UA negative. ASSESSMENT AND PLAN: 1. Pneumonia. Continue with antibiotic therapy. 2. Loculated pleural effusion status post right chest tube placement. Management as per the general surgeon. 3. Leukocytosis. White blood cell count is a little bit elevated today. Continue with antibiotic therapy. 4. Situational depression. Continue on Zoloft. 5. Deep vein thrombosis prophylaxis. Continue with SCDs. cc: France Villanueva MD
[2018-04-07] MEDS: AMBIEN PO SCH (20:07)
--- NOTE | 2018-04-07 21:00 | PULMONOLOGY PROGRESS NOTE ---
DATE: 04/07/2018 SUBJECTIVE: Patient is awake, alert and conversant. Chest tube was removed earlier today. OBJECTIVE: Vital Signs: BP 106/69, heart rate 94, respiratory rate 15, oxygen saturation 97% on room air. HEENT: Pupils are equal and reactive. Oropharynx is clear. Neck: Supple. Chest: Reveals crackles at the right base without significant wheezing or rhonchi. Cardiac exam: S1- S2. Abdomen: Soft without hepatosplenomegaly. Extremities: Without edema. LABORATORIES: Pleural fluid reveals no growth. No CBC today. No chemistry today. Chest x-ray reveals better expansion with decreased atelectasis at the left base with continued pleural thickening at the right base. IMPRESSION: A 57-year-old with empyema, pleurisy and pneumonia. The patient continues to improve. His chest tube has been removed today. PLAN: 1. A two-view chest x-ray tomorrow. 2. Continue bronchial hygiene. 3. Encourage incentive spirometry. 4. Follow up CBC and chemistries tomorrow morning. cc: Patrikc Ruiz MD
[2018-04-08] MEDS: NORCO-10 PO PRN ×2 (00:17→20:11)
[2018-04-08] MEDS: MAXIPIME 2 GM in NS 100 ML IV SCH ×3 (01:08→17:38)
[2018-04-08] MEDS: DILAUDID IV PRN ×7 (02:24→21:44)
[2018-04-08] MEDS: DUONEB (A & A) INH SCH ×6 (04:00→23:17)
[2018-04-08] MEDS: FLEXERIL PO SCH ×3 (05:49→20:10)
[2018-04-08 06:35] LABS: BASO# 0.02 X1000 (0.0-0.2); BASO% 0.3 % (0.0-0.8); EOS# 0.59 X1000 (0.0-0.7); EOS% 7.4 % (0.0-10.0); HEMATOCRIT 34.6 % (42.0-52.0); HEMOGLOBIN 10.8 g/dL (14.0-18.0); IMM GRAN# 0.06 X1000 (0.0-0.04); IMM GRAN% 0.8 % (0.0-0.5); LYMPH# 1.07 X1000 (1.2-3.4); LYMPH% 13.4 % (20.5-51.1); MCH 30.6 PG (27-31); MCHC 31.2 g/dL (33-37); MONO% 12.5 % (1.7-9.3); MPV 9.5 FL (7.4-10.4); NEUT# 5.26 X1000 (1.4-6.5); NEUT% 65.6 % (42.2-75.2); PLT 668 X1000 (130-400); RBC 3.53 XMIL (4.7-6.1); RDW 13.2 % (11.5-14.5)
[2018-04-08 07:13] LABS: AGAP 11; ALB/GLOB RATIO 0.7; ALBUMIN 2.6 g/dL (3.5-5.0); ALKALINE PHOSPHATASE 79 U/L (32-122); BUN 9 mg/dL (8-22); CALCIUM 8.9 mg/dL (8.8-10.2); CHLORIDE 103 mmol/L (98-107); COSMO 282; CREATININE 0.9 mg/dL (0.7-1.2); ESTIMATED GFR > 60; GLUCOSE 105 mg/dL (70-104); GOT 17 U/L (10-34); GPT 19 U/L (10-44); MAGNESIUM 2.1 mg/dL (1.5-2.7); PHOSPHORUS 3.4 mg/dL (2.7-4.5); POTASSIUM 3.3 mmol/L (3.5-5.1); SODIUM 142 mmol/L (136-145); TCO2 28 mmol/L (25-35); TOTAL BILIRUBIN < 0.15 mg/dL (0.20-1.00); TOTAL PROTEIN 6.3 g/dL (6.3-8.3)
--- NOTE | 2018-04-08 08:34 | Diag Imaging Result Doc PS360 ---
EXAM: CHEST-2 VIEWS HISTORY: abnormal exam TECHNIQUE: Chest two views COMPARISON: 04/05/2018 FINDINGS: There is a small to moderate-sized right-sided pleural effusion. There are infiltrates in the lower lungs as well as atelectasis in the right base. Infiltrates are less dense. No cardiomegaly. Mild scoliosis. IMPRESSION: Mild interval improvement. Electronically signed by Michael Bernard 04/08/2018 8:32 AM
[2018-04-08] MEDS: PERIDEX MT SCH ×2 (08:45→20:11)
[2018-04-08] MEDS: ZOLOFT PO SCH (08:45)
[2018-04-08] MEDS: MOBIC PO SCH (08:45)
[2018-04-08] MEDS: COLACE PO SCH ×2 (08:45→20:12)
[2018-04-08] MEDS: MIRALAX PO SCH ×2 (08:46→20:12)
[2018-04-08] MEDS ORDERED: KLOR-CON PO ONE (08:56)
[2018-04-08] MEDS: VANCOMYCIN 2,000 MG in NS 500 ML IV SCH (12:00)
--- NOTE | 2018-04-08 15:06 | GENERAL SURGERY PROGRESS NOTE ---
DATE: 04/08/2018 SUBJECTIVE: He is doing well. No difficulty breathing or chest pain. OBJECTIVE: Vital signs: He is afebrile. Vital signs are stable. General: He is awake, alert, oriented x3. No acute distress. Cardiovascular: Regular rate and rhythm. Respiratory: Bilateral breath sounds. No work of breathing. His right chest bandage is clean and dry. LABORATORY DATA: White cell count now 8000, down from 16,000. ASSESSMENT AND PLAN: A 89-year-old male status post chest tube placement for right loculated effusion and pneumonia. The tube has been removed. He is doing well from that standpoint and no further surgical plans at this time, and he can be discharged home per the primary team's discretion and follow up with Dr. Fitzgerald as needed. cc: Ismael Rice MD
--- NOTE | 2018-04-08 17:43 | PROGRESS NOTE ---
DATE: 04/08/2018 SUBJECTIVE: The patient is resting comfortably in bed. He states that the pain in his chest wall is better, he had his chest tube removed. OBJECTIVE: Vital Signs: Temperature 98.1 degrees, blood pressure 119/65, heart rate 86, respirations 16, O2 saturation 94% on room air. General: This is an elderly male lying in bed in no acute distress. Heart: S1, S2 normal. Regular rate and rhythm. Lungs: Clear to auscultation bilaterally. Abdomen: Positive bowel sounds. Soft, nontender, nondistended. Extremities: No edema, no cyanosis. Neuro: The patient is alert and oriented x3. LABS: White blood cell count 8, hemoglobin 10, hematocrit 34, platelets 668,000. Sodium 142, potassium 3.3, chloride 103, CO2 28, BUN 9, creatinine 0.9, glucose 105. ASSESSMENT AND PLAN: 1. Pneumonia. The patient is currently on intravenous antibiotics as per Dr. Murdock. 2. Loculated pleural effusion status post right chest tube placement and removal. Improved. 3. Leukocytosis. Resolved. 4. Tourette syndrome. Aware. 5. Situational depression. Continue on Zoloft. 6. Disposition. The patient can be discharged home once cleared by Dr. Murdock. cc: France Villanueva MD
[2018-04-08] MEDS: AMBIEN PO SCH (20:10)
[2018-04-09] MEDS: DILAUDID IV PRN ×7 (01:17→21:08)
[2018-04-09] MEDS: MAXIPIME 2 GM in NS 100 ML IV SCH ×3 (02:18→17:47)
[2018-04-09] MEDS: DUONEB (A & A) INH SCH ×6 (04:12→23:30)
[2018-04-09] MEDS: FLEXERIL PO SCH ×3 (04:27→21:08)
[2018-04-09] MEDS: VANCOMYCIN 2,000 MG in NS 500 ML IV SCH (06:07)
[2018-04-09] MEDS: ZOLOFT PO SCH (08:00)
[2018-04-09] MEDS: PERIDEX MT SCH ×2 (08:00→21:08)
[2018-04-09] MEDS: MIRALAX PO SCH ×2 (08:00→21:10)
[2018-04-09] MEDS: MOBIC PO SCH (08:00)
[2018-04-09] MEDS: COLACE PO SCH ×2 (08:01→21:10)
[2018-04-09] MEDS: NORCO-10 PO PRN ×2 (08:41→22:08)
--- NOTE | 2018-04-09 14:14 | PROGRESS NOTE ---
DATE: 04/09/2018 SUBJECTIVE: The patient is resting comfortably in bed. He has no complaints. OBJECTIVE: Vital Signs: Temperature 98.6 degrees, blood pressure 122/77, heart rate 80, respirations 16, O2 saturation is 92% on room air. General: This is an elderly male, lying in bed, in no acute distress. Heart: S1, S2 normal. Regular rate and rhythm. Lungs: Clear to auscultation bilaterally. Abdomen: Positive bowel sounds. Soft, nontender, nondistended. Extremities: No edema. No cyanosis. Neurologic: The patient is alert and oriented. LABS: None. ASSESSMENT AND PLAN: 1. Pneumonia. Improved. The patient is currently on cefepime and vancomycin which will be switched to Levaquin as per Dr. Murdock in anticipation of discharge tomorrow. 2. Right loculated pleural effusion status post chest tube removal. Stable. 3. Situational depression. Continue on Zoloft. 4. Tourette syndrome. Aware. 5. Disposition. The patient will likely be discharged home tomorrow. cc: France Villanueva MD
--- NOTE | 2018-04-09 14:58 | INFECTIOUS DISEASE PROGRESS NO ---
DATE: 04/09/2018 PRESENT ILLNESS: The patient has a right-sided pneumonia with an associated empyema. MEDICATIONS: Currently, the patient is on day #3 of cefepime and day #3 of vancomycin. PHYSICAL EXAMINATION: Vital Signs: Temperature is 98, pulse 80, respirations 18, blood pressure 120/70. General: This is a somewhat ill-appearing, middle-aged male. He is looking much better than when he came in. Head, Eyes, Ears, Nose and Throat: He can hear my spoken words and see near objects. He does not have any white patches on his tongue. Lungs: There were some diminished breath sounds on the right side. The left side was clear. I did not hear any rales on the right side or left side. Thorax: The patient's site where he had his chest tube is not erythematous or purulent. Cardiovascular: Heart rate is regular. Abdomen: Soft and nontender. Neurologic: Patient is alert. He can move his extremities. There is no tremor. LAB AND X-RAY: Chest x-ray showed a right pleural effusion and right-sided infiltrate, which is getting better. The pleural fluid has a negative acid-fast bacillus smear. It also on cytology had inflammation, but no cancer cells. The blood pleural fluid and urine cultures are all sterile. Creatinine is 0.9. GFR is greater than 60. Liver function studies are normal. Urine analysis was negative for white cells and bacteria. CBC shows a white count of 8000, a hemoglobin of 10.8 and a platelet count of 668,000. ASSESSMENT AND PLAN: Patient has pneumonia with an empyema. My plan is to send the patient home on Levaquin 500 mg daily for 2 weeks and will have an appointment set up for the patient to come to my office in 2 weeks. At that time, the patient will be examined and the chest x-ray will be repeated if it has not been in the last day or 2 with his visit, too. The patient also asked if I would give him a prescription for Flexeril for 2 weeks since it helped him not to be so sore. COMORBIDITIES: Include cigarette smoking, arthritis and chronic back pain. cc: Juan Carlos Murdock MD
--- NOTE | 2018-04-09 16:42 | PULMONOLOGY PROGRESS NOTE ---
DATE: 04/09/2018 SUBJECTIVE: The patient is awake, alert, and conversant. He is on room air. OBJECTIVE: Vital signs: BP 106/62, heart rate 87, respiratory rate 16, oxygen saturation 90%. HEENT: Pupils are equal and reactive. Oropharynx is clear. Neck: Supple. Chest: Reveals clear entry on the left with decreased breath sounds at the right base. Cardiac exam: S1, S2. Abdomen: Soft and without hepatosplenomegaly. Extremities: Without edema. IMPRESSION: This is a 57-year-old status post 10 days of antibiotics for an empyema, pleurisy, and pneumonia. All cultures have been negative. His leukocytosis has resolved. His chest tube has been removed. He continues to improve daily. RECOMMENDATIONS: 1. Continue bronchial hygiene. 2. Continue antibiotics per Dr. Juan Carlos Murdock. 3. Continue incentive spirometry. 4. Anticipate discharge with an outpatient course of Levaquin as outlined by Dr. Murdock. cc: Patrick Ruiz MD
[2018-04-09] MEDS: AMBIEN PO SCH (21:08)
[2018-04-10] MEDS: VANCOMYCIN 2,000 MG in NS 500 ML IV SCH (00:34)
[2018-04-10] MEDS: DILAUDID IV PRN ×4 (00:34→09:32)
[2018-04-10 03:22] VITALS: BP 120/73
[2018-04-10] MEDS: MAXIPIME 2 GM in NS 100 ML IV SCH ×2 (03:23→08:37)
[2018-04-10] MEDS: NORCO-10 PO PRN ×2 (04:10→10:31)
[2018-04-10] MEDS: FLEXERIL PO SCH ×2 (04:10→12:08)
[2018-04-10] MEDS: DUONEB (A & A) INH SCH ×3 (04:20→11:18)
[2018-04-10 07:02] LABS: AGAP 10; BUN 11 mg/dL (8-22); CALCIUM 8.9 mg/dL (8.8-10.2); CHLORIDE 99 mmol/L (98-107); COSMO 273; CREATININE 0.9 mg/dL (0.7-1.2); ESTIMATED GFR > 60; GLUCOSE 99 mg/dL (70-104); SODIUM 137 mmol/L (136-145); TCO2 28 mmol/L (25-35)
[2018-04-10 07:08] LABS: BASO# 0.01 X1000 (0.0-0.2); BASO% 0.1 % (0.0-0.8); EOS# 0.61 X1000 (0.0-0.7); EOS% 7.5 % (0.0-10.0); HEMATOCRIT 34.5 % (42.0-52.0); HEMOGLOBIN 10.8 g/dL (14.0-18.0); IMM GRAN# 0.08 X1000 (0.0-0.04); LYMPH# 0.95 X1000 (1.2-3.4); LYMPH% 11.7 % (20.5-51.1); MCH 30.6 PG (27-31); MCHC 31.3 g/dL (33-37); MCV 97.7 FL (81-99); MONO# 0.85 X1000 (0.11-0.59); MONO% 10.4 % (1.7-9.3); MPV 9.8 FL (7.4-10.4); NEUT# 5.65 X1000 (1.4-6.5); NEUT% 69.3 % (42.2-75.2); PLT 515 X1000 (130-400); RBC 3.53 XMIL (4.7-6.1); RDW 13.6 % (11.5-14.5); WBC 8.15 X1000 (4.8-10.8)
[2018-04-10] MEDS: PERIDEX MT SCH (08:37)
[2018-04-10] MEDS: MOBIC PO SCH (08:37)
[2018-04-10] MEDS: ZOLOFT PO SCH (08:37)
[2018-04-10] MEDS: COLACE PO SCH (08:38)
[2018-04-10] MEDS: MIRALAX PO SCH (08:38)
--- NOTE | 2018-04-10 17:47 | GENERAL SURGERY PROGRESS NOTE ---
DATE: 04/10/2018 PROGRESS NOTE: Mr. Heath is afebrile. His white count is down to normal. He is breathing satisfactorily. His chest x-ray is acceptable. He has a little pleural thickening in the base. PLAN: He is going to go home. I will be glad to see him in followup if he is left with a situation where he is not capable of maintaining his usual activity and is functionally limited because of his shortness of breath. I discussed with him his wound. cc: Yair Fitzgerald MD
--- NOTE | 2018-04-16 09:49 | DISCHARGE SUMMARY ---
ADMISSION DATE: 03/30/2018 DISCHARGE DATE: 04/10/2018 FINAL DIAGNOSES: 1. Pneumonia. 2. Right loculated pleural effusion status post chest tube placement. 3. Situational depression. 4. Tourette syndrome. CONSULTATIONS REQUESTED DURING THIS HOSPITAL STAY: 1. ID consultation with Dr. Murdock. 2. Pulmonary consultation with Dr. Chong. 3. General surgery consultation with Dr. Fitzgerald. IMAGING: CT of the chest performed on 03/31/2018, which revealed a large partially loculated right pleural effusion with atelectasis, as well as right and left lung pneumonia. PROCEDURES: Placement of a right chest tube performed on 04/01/2018. HOSPITAL COURSE: Mr. Heath is a 57-year-old male with a history of Tourette syndrome who presented to the ER with a chief complaint of shortness of breath and pleuritic chest pain. On admission, a CT of the chest was done that revealed a large right partially loculated pleural effusion as well as bilateral pneumonia. The patient was admitted to the hospitalist service. Blood and sputum cultures were obtained. The patient was then started on broad-spectrum antibiotics. General surgery as well as ID were consulted for assistance with management. It was decided by the general surgery to take the patient to the OR and place a right-sided chest tube. This was done on April 01. Slowly over the course of the hospitalization with antibiotic therapy and the chest tube, the patient's pleural effusion slowly resolved. Ultimately, the blood and pleural fluid cultures were noted to be negative. The patient responded well to the antibiotic therapy. Eventually, the chest tube was removed and the patient did well following the removal. It was recommended by Dr. Murdock that the patient continue on Levaquin 500 mg daily for at least 2 weeks. The patient was then cleared for discharge home. DISCHARGE MEDICATIONS: 1. Flexeril 10 mg p.o. every 8 hours p.r.n. 2. Levaquin 500 mg p.o. daily for 2 weeks. 3. Meloxicam 15 mg p.o. daily. 4. Zoloft 100 mg p.o. daily. 5. [place] 10/325 one tab oral every 6 hours p.r.n. for pain. DISCHARGE DIET: Low-sodium diet. ACTIVITY: As tolerated. FOLLOWUP INSTRUCTIONS: The patient will need to followup with Dr. Juan Carlos Murdock as scheduled for repeat chest x-ray on 04/24/2018 at 9:45 a.m. cc: France Villanueva MD
== END 2018-04-10 12:40 | disposition home or self-care (01) | DRG 193 ==
LOC: ED 14:38 → SUATTDRO 23:51 → EDIPHOLD 23:51 → 4N 03-31 07:44
PROVIDERS: ATTEND Internal Medicine
CPT/HCPCS: 32421; 32555; 71010; 71020; 71045; 71046; 71250; 71260; 80048; 80053; 80202; 81001; 82150; 82550; 82784; 82945; 83605; 83615; 83735; 83986; 84100; 84157; 84484; 85025; 85610; 85730; 87040; 87070; 87088; 87102; 87116; 87147; 87205; 87206; 88112; 88305; 89051; 93005; 94640; 94761; 94799; 96365; 96372; 96375; 99285; A9270; J0330; J0692; J1170; J1885; J2175; J2270; J2405; J2543; J2997; J3010; J3370; J7040; Q9967